=== PATIENT | male | born 1990 | race African-American/Black ===

== ENCOUNTER 2022-12-15 23:08 | Emergency (ER) | payer SELFPAY ==
[~2022-12-15] VITALS: Ht 190.5 cm; Wt 102.1 kg
--- NOTE | 2022-12-15 23:09 | NUR ---
Dr. Pena examining patient.
[2022-12-15 23:10] VITALS: BP 141/86
[2022-12-15 23:15] VITALS: BP 141/86
[2022-12-15] MEDS ORDERED: risperiDONE 1 MG TAB PO ONE (23:15)
[2022-12-15] MEDS ORDERED: RISP0.5T3 PO (23:51)
--- NOTE | 2022-12-16 | NUR ---
Patient discharged with v/s stable. Written and verbal after care instructions given and explained. Patient alert, oriented and verbalized understanding of instructions. Ambulatory with steady gait. All questions addressed prior to discharge. ID band removed. Patient advised to follow up with PMD. Rx of Risperidone given. Patient educated on indication of medication including possible reaction and side effects. Opportunity to ask questions provided and answered.
== END 2022-12-16 | disposition home or self-care (01) ==
LOC: MED 23:08
DX: F20.9 Schizophrenia, unspecified (principal); F32.9 Major depressive disorder, single episode, unspecified; Z76.0 Encounter for issue of repeat prescription; Z79.899 Other long term (current) drug therapy
CPT/HCPCS: 99283